=== PATIENT | female | born 1995 | race African-American/Black ===

== ENCOUNTER 2022-02-22 11:42 | Emergency (ER) | payer OTHER ==
[~2022-02-22] VITALS: Ht 177.8 cm; Wt 81.8 kg
[2022-02-22] MEDS ORDERED: AMIT10TA7 (11:51)
[2022-02-22] MEDS ORDERED: NS 1,000 ML IV ONE (13:15)
[2022-02-22] MEDS ORDERED: diphenhydrAMINE 50MG/ML VIAL (J1200) IV STA (13:15)
[2022-02-22] MEDS ORDERED: METOCLOPRAMIDE INJ 10MG/2ML VIAL (J2765 PER 1) IV ONE (13:15)
[2022-02-22] MEDS ORDERED: KETOROLAC 30 MG/ML 1ML VIAL IV ONE (13:15)
[2022-02-22 13:42] LABS: BASO % 0.9 % (0.0-1.0); EOS # 0.1 10^3/uL (0.0-0.5); HEMATOCRIT 37.7 % (36.0-47.0); LYMPH # 2.1 10^3/uL (1.5-5.0); LYMPH % 45.8 % (24.0-44.0); MEAN CORPUSCULAR HGB CONC 31.8 g/dl (32.0-36.5); MEAN CORPUSCULAR VOLUME 84.9 fl (80.0-96.0); MONO # 0.3 10^3/uL (0.0-0.8); MONO % 7.3 % (2.0-8.0); NEUTROPHILS % 43.8 % (36.0-66.0); PLATELET COUNT, AUTOMATED 260 10^3/uL (150-450); RED BLOOD COUNT 4.44 10^6/uL (4.00-5.40); WHITE BLOOD COUNT 4.5 10^3/uL (4.0-10.0)
[2022-02-22 14:33] LABS: C REACTIVE PROTEIN QUANTITATIV < 0.30 MG/DL (0.00-0.30); MAGNESIUM LEVEL 2.2 MG/DL (1.8-2.4)
[2022-02-22 14:54] LABS: ERYTHROCYTE SEDIMENTATION RATE 7 mm/hr (0-20)
[2022-02-22 15:12] VITALS: BP 111/67
[2022-02-22] MEDS ORDERED: REGL10TA6 PO (15:20)
== END 2022-02-22 15:51 | disposition home or self-care (01) ==
LOC: M ED 11:42
DX: R51.9 Headache, unspecified (principal)
CPT/HCPCS: 36415; 70450; 80047; 83735; 84702; 85025; 85652; 86140; 86618; 96361; 96374; 96375; 99284; J1200; J1885; J2765

== ENCOUNTER → 2022-09-28 | Outpatient (CLI) | payer OTHER ==
[~2022-09-28] MED LIST: AMIT10TA7; REGL10TA6 PO
== END ==
LOC: M LABSMTC 10:32
PROVIDERS: ATTEND Anesthesiology
DX: Z01.812 Encounter for preprocedural laboratory examination (principal); Z20.822 Contact with and (suspected) exposure to COVID-19

== ENCOUNTER → 2022-10-12 | Outpatient (CLI) | payer OTHER | LOC: M LABSMTC 09:29 | PROVIDERS: ATTEND Anesthesiology | DX: Z01.818 Encounter for other preprocedural examination (principal); Z11.52 Encounter for screening for COVID-19 ==

== ENCOUNTER 2022-10-17 10:38 | Day surgery (SDC) | payer OTHER ==
[~2022-10-17] VITALS: Ht 177.8 cm; Wt 84.4 kg
[~2022-10-17 10:38] MED LIST changes: +ceFAZolin SOD 2 GM in IV 1 EA IV ONE
[2022-10-17] MEDS ORDERED: LR 1,000 ML IV SCH (11:15)
[2022-10-17] MEDS ORDERED: LIDOCAINE 1% SDV 5ML VIAL SC PRN (11:15)
[2022-10-17] MEDS ORDERED: EMLA CREAM 5GM TUBE (LIDOCAINE/PRILOCAINE) TOP PRN (11:15)
[2022-10-17] MEDS ORDERED: ceFAZolin SOD 2 GM in IV 1 EA IV ONE (11:20)
[2022-10-17] MEDS ORDERED: MIDAZOLAM INJ 2MG/2ML VIAL As Ordered ONE (12:45)
[2022-10-17] MEDS ORDERED: propofoL 200 MG/20 ML VIAL As Ordered ONE ×2 (12:45→14:18)
[2022-10-17] MEDS ORDERED: LIDOCAINE 2% 100MG/5ML SDV (FOR ANES.) As Ordered ONE (12:45)
[2022-10-17] MEDS ORDERED: ONDANSETRON 4MG 2ML VIAL As Ordered ONE (12:45)
[2022-10-17] MEDS ORDERED: fentaNYL 100 MCG/2 ML INJECTION As Ordered ONE (12:45)
[2022-10-17] MEDS ORDERED: KETOROLAC 60MG 2ML VIAL As Ordered ONE (12:45)
[2022-10-17] MEDS ORDERED: ACETAMINOPHEN 1000MG 100ML IV BAG As Ordered ONE (12:46)
[2022-10-17] MEDS ORDERED: BUPIVACAINE HCL 0.5% 30ML VIAL As Ordered ONE (12:50)
[2022-10-17] MEDS ORDERED: LIDOCAINE 1% SDV 30ML VIAL As Ordered ONE (12:50)
[2022-10-17] MEDS ORDERED: propofoL 500 MG/50 ML VIAL As Ordered ONE (14:19)
[2022-10-17 15:25] VITALS: BP 119/74
== END 2022-10-17 15:33 | disposition home or self-care (01) ==
LOC: M SDC 10:38
PROVIDERS: ATTEND Podiatrist Foot & Ankle Surgery
DX: M20.41 Other hammer toe(s) (acquired), right foot (principal); L84 Corns and callosities
CPT/HCPCS: 28285; 81025; 88300; J0131; J1100; J1885; J2250; J2405; J3010; S0020

== ENCOUNTER 2023-01-01 06:12 | Emergency (ER) | payer OTHER ==
[~2023-01-01] VITALS: Ht 177.8 cm; Wt 86.1 kg
[~2023-01-01 06:12] MED LIST changes: -ceFAZolin SOD 2 GM in IV 1 EA IV ONE
[2023-01-01 11:35] VITALS: BP 117/78; TEMP 99.9; O2SAT 100
[2023-01-01] MEDS ORDERED: ACETAMINOPHEN 500 MG TAB PO ONE (11:35)
== END 2023-01-01 11:40 | disposition home or self-care (01) ==
LOC: M ED 06:12
DX: U07.1 COVID-19 (principal)